=== PATIENT | female | born 1995 | race Caucasian/White ===

== ENCOUNTER 2024-11-19 12:15 | Inpatient (IN) | payer OTHER ==
[~2024-11-19] VITALS: Ht 160 cm; Wt 124.3 kg
[2024-11-22] MEDS ORDERED: LACTATED RINGER'S 1,000 ML IV SCH (00:30)
[2024-11-22] MEDS ORDERED: OXYTOCIN/0.9 % SODIUM CHLORIDE 30 UNITS/500 ML BAG IV SCH (00:30)
[2024-11-22] MEDS ORDERED: LACTATED RINGER'S 1,000 ML IV PRN (00:30)
[2024-11-22] MEDS ORDERED: CALCIUM CARBONATE 500 MG CHEW PO PRN (00:30)
[2024-11-22] MEDS ORDERED: miSOPROStoL 25 MCG TAB PV SCH (00:30)
[2024-11-22] MEDS ORDERED: MAGNESIUM HYDROXIDE/AL HYDROX 30 ML CUP PO PRN (00:30)
[2024-11-22 00:47] LABS: HEMATOCRIT 35.3 % (34.1-44.9); HEMOGLOBIN 11.9 g/dL (11.2-15.7); MCH 30.4 PG (25.6-32.2); MCHC 33.7 g/dL (32.2-35.5); MCV 90.3 fL (79.4-94.8); RBC 3.91 M/uL (3.93-5.22)
[2024-11-22 01:07] LABS: AMPHETAMINES, URINE NEGATIVE (NEGATIVE); BARBITURATES, URINE NEGATIVE (NEGATIVE); BENZODIAZEPINE, URINE NEGATIVE (NEGATIVE); BUPRENORPHINE, URINE NEGATIVE (NEGATIVE); CANNABINOID, URINE NEGATIVE (NEGATIVE); COCAINE, URINE NEGATIVE (NEGATIVE); ECSTASY, URINE NEGATIVE (NEGATIVE); FENTANYL, URINE NEGATIVE (NEGATIVE); METHADONE, URINE NEGATIVE (NEGATIVE); OPIATES, URINE NEGATIVE (NEGATIVE); OXYCODONE, URINE NEGATIVE (NEGATIVE); PHENCYCLIDINE, URINE NEGATIVE (NEGATIVE)
[2024-11-22 01:40] VITALS: BP 135/72
[2024-11-22 01:55] LABS: ABO A; ANTIBODY SCREEN POSITIVE; RH NEGATIVE
[2024-11-22 01:56] LABS: ANTIBODY IDENTIFICATION ANTI-D
[2024-11-22] MEDS ORDERED: OXYTOCIN/0.9 % SODIUM CHLORIDE 500 ML IV SCH (09:15)
[2024-11-22] MEDS ORDERED: ondansetron HCL 4 MG/2 ML VIAL IV PRN (15:30)
--- NOTE | 2024-11-22 16:41 | PR ---
[facility] [address] [facility] [place], [place] [address] Signed Progress Notes IP Datetime Report Generated by CPN: 11/22/2024 16:41 PROGRESS NOTES: [id number] Impression: Normal Progression of Labor Procedures: Artificial ROM Plan: Continue Present Management; Induction VITAL SIGNS: [id number] Vital Signs: Reviewed; Within Normal Limits EXAM: [id number] Dilatation: 5.0 Effacement: 90 Station: -1 Contractions: 1-4 min MEMBRANES: [id number] Membranes Status: Ruptured Comments: Will continue pitocin. Making appropriate progress. FETUS A: [id number] FHR Baseline: 120 Variability: Moderate 6-25bpm Accelerations: 15X15 Decelerations: None FHR Category: Category I Comments on Fetus A: Reassuring FETUS B: [id number] Signing Physician: Kady Vasquez MD Copies: ~ *Electronically Signed* 11/22/24 1641 KADY VASQUEZ MD PATIENT NAME: RAFAEL MONTESINOS PROGRESS NOTE DATE OF : [birth year] PHYSICIAN: KADY VASQUEZ MD RPT #: [id number] REPORT IS CONFIDENTIAL AND NOT TO BE RELEASED WITHOUT AUTHORIZATION
[2024-11-22] MEDS ORDERED: FAMOTIDINE 20 MG/ 2 ML VIAL IV PRN (17:15)
[2024-11-23] MEDS ORDERED: ROPIVACAINE 0.2% 200 ML BAG ONE (00:42)
[2024-11-23] MEDS ORDERED: ROPIVACAINE 0.2% 200 ML BAG EPIDURAL SCH (00:45)
[2024-11-23] MEDS ORDERED: LACTATED RINGER'S 500 ML IV PRN (00:45)
[2024-11-23] MEDS ORDERED: ePHEDrine sulfate 5 MG/ML SYRINGE IV PRN (00:45)
[2024-11-23] MEDS ORDERED: LACTATED RINGER'S 2,000 ML IV ONE (00:45)
[2024-11-23] MEDS ORDERED: OXYTOCIN/0.9 % SODIUM CHLORIDE 500 ML IV SCH (04:45)
[2024-11-23] MEDS ORDERED: BENZOCAINE 60 ML AEROSOL TOP PRN (04:45)
[2024-11-23] MEDS ORDERED: IBUPROFEN 600 MG TAB PO PRN (04:45)
[2024-11-23] MEDS ORDERED: MAGNESIUM HYDROXIDE 30 ML UDC PO PRN (04:45)
[2024-11-23] MEDS ORDERED: WITCH HAZEL/GLYCERIN 1 EA PAD TOP PRN (04:45)
[2024-11-23] MEDS ORDERED: LIDOCAINE 2% VISCOUS 6 ML SYR TOP ONE (04:45)
[2024-11-23] MEDS ORDERED: HYDROCORTISONE ACETATE 25 MG SUPP PR PRN (04:45)
[2024-11-23] MEDS ORDERED: ACETAMINOPHEN 325 MG TAB PO PRN (04:45)
[2024-11-23] MEDS ORDERED: SENNOSIDES/DOCUSATE 1 EA TAB PO SCH (09:00)
--- NOTE | 2024-11-24 08:46 | PR ---
[facility] [address] [facility] [place], [place] [address] Signed PP Progress Notes Datetime Report Generated by CPN: 11/24/2024 08:46 SUBJECTIVE: [id number] Pain: Within Normal Limits Nausea/Vomiting: Denies Flatus: Yes Vital Signs: [id number] Vital Signs: Reviewed; Within Normal Limits EXAM: Ongoing Cardiovascular: Normal Respiratory: Normal Abdomen/Uterus: Normal Lochia: Normal Vulva/Perineum: Normal Breasts: Normal CVA Tenderness: Not Done Extremities: Normal Incision: Not Applicable Progress: Normal IMPRESSION/PLAN/PROCEDURES: [id number] Impression: Normal Progression Plan: Continue Present Management; Discharge Progress Notes: PAtient feeling well today. Desires D/C home. Intends to solely breastfeed. Normal lochia. Pain well controlled Signing Physician: Kady Vasquez MD Copies: ~ *Electronically Signed* 11/24/24 0846 KADY VASQUEZ MD PATIENT NAME: RAFAEL MONTESINOS PROGRESS NOTE DATE OF : [birth year] PHYSICIAN: KADY VASQUEZ MD RPT #: [id number] REPORT IS CONFIDENTIAL AND NOT TO BE RELEASED WITHOUT AUTHORIZATION
== END 2024-11-24 14:23 | disposition home or self-care (01) | DRG 807 ==
LOC: EDSTATUS 12:15 → FBCO 16:28 → FBC 11-22 00:06
PROVIDERS: ADMIT Obstetrics & Gynecology; ATTEND Obstetrics & Gynecology
PROC: 10E0XZZ Delivery of Products of Conception, External Approach (ICD-10-PCS; principal; 2024-11-23)
PROC: 0UQMXZZ Repair Vulva, External Approach (ICD-10-PCS; 2024-11-23)
PROC: 3E033VJ Introduction of Other Hormone into Peripheral Vein, Percutaneous Approach (ICD-10-PCS; 2024-11-23)
PROC: 3E0R3BZ Introduction of Anesthetic Agent into Spinal Canal, Percutaneous Approach (ICD-10-PCS; 2024-11-23)
PROC: 00HU33Z Insertion of Infusion Device into Spinal Canal, Percutaneous Approach (ICD-10-PCS; 2024-11-23)
DX: O48.0 Post-term pregnancy (principal); Z37.0 Single live birth; O70.0 First degree perineal laceration during delivery; Z3A.41 41 weeks gestation of pregnancy
CPT/HCPCS: 36415; 80307; 85027; 86850; 86870; 86900; 86901; A9270; J2405; J7121